=== PATIENT | female | born 1975 | race Caucasian/White ===

== ENCOUNTER 2019-10-19 20:38 | Emergency (ER) | payer SELFPAY ==
[~2019-10-19] VITALS: Ht 175.3 cm; Wt 87.1 kg
[2019-10-19] MEDS ORDERED: NEURONTIN300 MG (21:27)
[2019-10-19] MEDS ORDERED: VENLAFAXINE ER 75MG (21:27)
[2019-10-19] MEDS ORDERED: Augmentin 875-1 EACH PO (22:27)
== END 2019-10-19 22:36 | disposition home or self-care (01) ==
LOC: ER 20:38
DX: S61.451A Open bite of right hand, initial encounter (principal); W55.01XA Bitten by cat, initial encounter; L03.113 Cellulitis of right upper limb; Z79.899 Other long term (current) drug therapy
CPT/HCPCS: 90471; 90714; 99283-25

== ENCOUNTER 2021-10-26 15:59 | Emergency (ER) | payer OTHER ==
[~2021-10-26] VITALS: Ht 175.3 cm; Wt 104.3 kg
[~2021-10-26 15:59] MED LIST: Augmentin 875-1 EACH PO; NEURONTIN300 MG; VENLAFAXINE ER 75MG
[2021-10-26] MEDS ORDERED: GABA300 PO (17:10)
[2021-10-26] MEDS ORDERED: VENL75ER PO (17:10)
[2021-10-26] MEDS ORDERED: Bactrim Ds Tab1 EACH PO (17:11)
== END 2021-10-26 17:12 | disposition home or self-care (01) ==
LOC: ER 15:59
DX: L03.115 Cellulitis of right lower limb (principal); L02.415 Cutaneous abscess of right lower limb
CPT/HCPCS: 99283

== ENCOUNTER → 2023-05-28 | Outpatient (CLI) | payer OTHER ==
[~2023-05-28] MED LIST changes: +Bactrim Ds Tab1 EACH PO; +GABA300 PO; +VENL75ER PO
== END ==
LOC: LAB SHORT 18:39 → LAB 18:39
DX: R22.1 Localized swelling, mass and lump, neck (principal)
CPT/HCPCS: 87070; 87075; 87077; 87147; 87186; 87205

== ENCOUNTER → 2023-05-28 | Outpatient (CLI) | payer OTHER | LOC: PLD 12:44 → LAB 12:44 → LAB SHORT 12:44 | DX: L98.0 Pyogenic granuloma (principal); D18.01 Hemangioma of skin and subcutaneous tissue | CPT/HCPCS: 88305 ==